=== PATIENT | male | born 1985 | race Two or more races ===

== ENCOUNTER 2019-01-30 16:21 | Emergency (ER) | payer BC ==
[~2019-01-30] VITALS: Ht 185.4 cm; Wt 97.5 kg
[2019-01-30 16:38] VITALS: BP 147/80
--- NOTE | 2019-01-30 16:38 | NUR ---
ED Nurse Note: PT WALKED IN DUE TO LOWER BACK PAIN MORE ON LEFT FLANK AREA AND UNABLE TO URINATE SINCE THIS MORNING. HX OF KIDNEY STONES. AAO X4, AMBULATORY WITH UNLABORED BREATHING. VSS.
--- NOTE | 2019-01-30 16:40 | Emergency Room Report ---
History of Present Illness General Chief Complaint: Male Urogenital Problems Source: Patient, Friend Present Illness HPI Patient presents with left-sided flank pain. It started at 3 AM this morning. He denies vomiting but felt like he was about to. He's had difficulty urinating. Last week he passed a small stone. A CAT scan was done at outpatient facility 2 days ago. He denies fevers or chills. He reports the pain at 7/10 at this time and fairly constant. He has a history of renal stones in the past. The pain is more anterior and radiates somewhat down to the groin area. He has not taken any pain medication today. He has been refraining from drinking fluids because of the pain. No sore throat, chest pain, palpitations, diarrhea, shortness of breath, joint pain, rashes, depression, anxiety, visual changes, headache. Allergies: Coded Allergies: No Known Allergies (Unverified , 01/30/19) Patient History Past Medical History: see triage record Social History: Denies: smoking Social History Narrative with friend Reviewed Nursing Documentation: PMH: Agreed; PSxH: Agreed Nursing Documentation-PMH Past Medical History: No History, Except For Hx Cardiac Problems: No - kidney stone Review of Systems All Other Systems: negative except mentioned in HPI Physical Exam Vital Signs Date Time Temp Pulse Resp B/P (MAP) Pulse Ox O2 Delivery O2 Flow Rate FiO2 01/30/19 16:28 98.1 86 18 150/85 (106) 99 Room Air Sp02 EP Interpretation: reviewed, normal General Appearance: well appearing, no apparent distress, GCS 15 Head: normocephalic, atraumatic Eyes: bilateral eye normal inspection, bilateral eye PERRL, bilateral eye EOMI ENT: moist mucus membranes Neck: supple Respiratory: lungs clear, normal breath sounds Cardiovascular #1: regular rate, rhythm Cardiovascular #2: 2+ radial (R) Gastrointestinal: normal inspection, normal bowel sounds, no mass, non- distended, no guarding, no rebound, tenderness - Minimal left lower quadrant and flank Genitourinary: no CVA tenderness Musculoskeletal: back normal, gait/station normal, normal range of motion Neurologic: alert, oriented x3, grossly normal Psychiatric: mood/affect normal Skin: no rash, other - Episodes of pain where he loses some of his color Medical Decision Making Diagnostic Impression: Primary Impression: Flank pain Additional Impression: Hesitancy of micturition ER Course Patient presents with left flank pain with history of renal stones. Differential renal colic, UTI, obstructing stone, bladder stone amongst others. Evaluation will be with labs and renal ultrasound. The patient will be treated with IV hydration, Toradol, Zofran and morphine. He recently had a CAT scan done. Depending on the ultrasound results and clinical course of his pain another CT scan may need to be performed today. CBC unremarkable. CMP with minimal elevated creatinine. Urinalysis unremarkable. Ultrasound without hydronephrosis. 1.2 cm stone in the left renal calyx. No obstruction. Patient able to urinate here without difficulty. Stone is felt not to be the cause of discomfort. It is possible that he is passing grit from the prior renal stone. Patient is improved. Discussed findings with patient and friend. Discussed treatment plan. Patient stable for outpatient observation and treatment. Laboratory Tests Test 01/30/19 16:45 01/30/19 17:45 White Blood Count 9.3 K/UL (4.8-10.8) Red Blood Count 4.97 M/UL (4.70-6.10) Hemoglobin 15.5 G/DL (14.2-18.0) Hematocrit 45.8 % (42.0-52.0) Mean Corpuscular Volume 92 FL (80-99) Mean Corpuscular Hemoglobin 31.1 PG (27.0-31.0) H Mean Corpuscular Hemoglobin Concent 33.8 G/DL (32.0-36.0) Red Cell Distribution Width 10.1 % (11.6-14.8) L Platelet Count 326 K/UL (150-450) Mean Platelet Volume 5.7 FL (6.5-10.1) L Neutrophils (%) (Auto) 58.7 % (45.0-75.0) Lymphocytes (%) (Auto) 27.4 % (20.0-45.0) Monocytes (%) (Auto) 8.7 % (1.0-10.0) Eosinophils (%) (Auto) 3.7 % (0.0-3.0) H Basophils (%) (Auto) 1.4 % (0.0-2.0) Prothrombin Time 9.8 SEC (9.30-11.50) Prothrombin Time INR 0.9 (0.9-1.1) PTT 27 SEC (23-33) Sodium Level 139 MMOL/L (136-145) Potassium Level 3.9 MMOL/L (3.5-5.1) Chloride Level 103 MMOL/L (98-107) Carbon Dioxide Level 26 MMOL/L (21-32) Anion Gap 10 mmol/L (5-15) Blood Urea Nitrogen 17 mg/dL (7-18) Creatinine 1.4 MG/DL (0.55-1.30) H Estimate Glomerular Filtration Rate 58.0 mL/min (>60) Glucose Level 103 MG/DL (74-106) Calcium Level 9.5 MG/DL (8.5-10.1) Total Bilirubin 0.7 MG/DL (0.2-1.0) Aspartate Amino Transferase (AST) 33 U/L (15-37) Alanine Aminotransferase (ALT) 46 U/L (12-78) Alkaline Phosphatase 72 U/L (46-116) Total Protein 7.8 G/DL (6.4-8.2) Albumin 4.8 G/DL (3.4-5.0) Globulin 3.0 g/dL Albumin/Globulin Ratio 1.6 (1.0-2.7) Lipase 91 U/L (73-393) Urine Color Pale yellow Urine Appearance Clear Urine pH 5 (4.5-8.0) Urine Specific Gipsy 1.015 (1.005-1.035) Urine Protein Negative (NEGATIVE) Urine Glucose (UA) Negative (NEGATIVE) Urine Ketones 2+ (NEGATIVE) H Urine Blood 1+ (NEGATIVE) H Urine Nitrite Negative (NEGATIVE) Urine Bilirubin Negative (NEGATIVE) Urine Urobilinogen Normal MG/DL (0.0-1.0) Urine Leukocyte Esterase 1+ (NEGATIVE) H Urine RBC 0-2 /HPF (0 - 0) H Urine WBC 0-2 /HPF (0 - 0) Urine Squamous Epithelial Cells None /LPF (NONE/OCC) Urine Bacteria None /HPF (NONE) CT/MRI/US Diagnostic Results CT/MRI/US Diagnostic Results : Imaging Test Ordered: Renal ultrasound Impression The size, contour, and echogenicity of both kidneys are within normal limits. There is no hydronephrosis. The IVC and urinary bladder are unremarkable. Right kidney measures 10.3 cm in length. Left kidney measures 12 cm in length. There is a nonobstructive stone in the left kidney. There is no hydronephrosis. IMPRESSION: Nonobstructive stone in the left kidney. Last Vital Signs Date Time Temp Pulse Resp B/P (MAP) Pulse Ox O2 Delivery O2 Flow Rate FiO2 01/30/19 19:34 98.3 89 20 136/78 100 Room Air Status: improved Disposition: HOME, SELF-CARE Condition: Improved Scripts Tramadol Hcl* (ULTRAM*) 50 Mg Tablet 50 MG ORAL Q6H PRN for For Pain, #6 TAB 0 Refills Prov: Srinivas Elise MD 01/30/19 Phenazopyridine Hcl* (PYRIDIUM*) 100 Mg Tablet 100 MG ORAL THREE TIMES A DAY PRN for dysruria, #10 TAB Prov: Srinivas Elise MD 01/30/19 Srinivas Elise MD Jan 30, 2019 16:40
[2019-01-30] MEDS ORDERED: Ketorolac 30mg Inj IV ONE (16:45)
[2019-01-30] MEDS ORDERED: Morphine Sulfate 4mg/ml Inj (IV USE ONLY) IVP ONE (16:45)
[2019-01-30 16:54] LABS: BASOPHILS % (AUTO) 1.4 % (0.0-2.0); EOSINOPHILS % (AUTO) 3.7 % (0.0-3.0); HEMATOCRIT 45.8 % (42.0-52.0); HEMOGLOBIN 15.5 G/DL (14.2-18.0); LYMPHOCYTES % (AUTO) 27.4 % (20.0-45.0); MEAN CORPUSCULAR VOLUME 92 FL (80-99); MONOCYTES % (AUTO) 8.7 % (1.0-10.0); NEUTROPHILS % (AUTO) 58.7 % (45.0-75.0); PLATELET COUNT 326 K/UL (150-450); RED BLOOD COUNT 4.97 M/UL (4.70-6.10); RED CELL DISTRIBUTION WIDTH 10.1 % (11.6-14.8); WHITE BLOOD COUNT 9.3 K/UL (4.8-10.8)
[2019-01-30 17:05] LABS: ANION GAP 10 mmol/L (5-15); BLOOD UREA NITROGEN 17 mg/dL (7-18); CALCIUM 9.5 MG/DL (8.5-10.1); CARBON DIOXIDE 26 MMOL/L (21-32); CHLORIDE 103 MMOL/L (98-107); CREATININE 1.4 MG/DL (0.55-1.30); INR 0.9 (0.9-1.1); POTASSIUM 3.9 MMOL/L (3.5-5.1); SODIUM 139 MMOL/L (136-145)
[2019-01-30 17:10] LABS: ALANINE AMINOTRANSFERASE 46 U/L (12-78); ALBUMIN 4.8 G/DL (3.4-5.0); ALBUMIN/GLOBULIN RATIO 1.6 (1.0-2.7); ALKALINE PHOSPHATASE 72 U/L (46-116); ASPARTATE AMINO TRANSFERASE 33 U/L (15-37); BILIRUBIN,TOTAL 0.7 MG/DL (0.2-1.0)
[2019-01-30 17:56] LABS: APPEARANCE,URINE CLEAR; BILIRUBIN, URINE NEGATIVE (NEGATIVE); COLOR,URINE PALE YELLOW; GLUCOSE, URINE (UA) NEGATIVE (NEGATIVE); KETONES,URINE 2+ (NEGATIVE); LEUKOCYTE ESTERASE ,URINE 1+ (NEGATIVE); NITRITE,URINE NEGATIVE (NEGATIVE); PH,URINE 5 (4.5-8.0); PROTEIN,URINE NEGATIVE (NEGATIVE); UROBILINOGEN,URINE NORMAL MG/DL (0.0-1.0)
--- NOTE | 2019-01-30 18:00 | NUR ---
ED Nurse Note: URINE SPECIMEN SENT.
[2019-01-30] MEDS ORDERED: NKM (18:22)
[2019-01-30 18:44] VITALS: BP 136/78
--- NOTE | 2019-01-30 19:01 | NUR ---
HAND-OFF: Report given to MITCHELL MACIAS.
[2019-01-30] MEDS ORDERED: PHENAZOPYRIDIN100 MG ORAL (19:23)
[2019-01-30] MEDS ORDERED: TRAMADOL HCL50 MG ORAL (19:23)
[2019-01-30 19:34] VITALS: BP 136/78
--- NOTE | 2019-01-30 19:35 | NUR ---
ER DISCHARGE NOTE: Patient is cleared to be discharged per ERMD, pt is aox4, on room air, with stable vital signs. pt was given dc and prescription instructions, pt was able to verbalize understanding, pt id band and iv site removed without complications. pt is able to ambulate with steady gait. pt took all belongings.
--- NOTE | 2019-01-30 20:24 | Diagnostic Imaging Report ---
Indication:Elevated Bun and Creatinine. Flank pain Technique: Grayscale and duplex Doppler imaging of the kidneys performed. Comparison: None Findings: The size, contour, and echogenicity of both kidneys are within normal limits. There is no hydronephrosis. The IVC and urinary bladder are unremarkable. Right kidney measures 10.3 cm in length. Left kidney measures 12 cm in length. There is a nonobstructive stone in the left kidney. There is no hydronephrosis. IMPRESSION: Nonobstructive stone in the left kidney.
[2019-01-30] MEDS ORDERED: Tamsulosin 0.4mg cap ORAL SCH (21:00)
== END 2019-01-30 19:36 | disposition home or self-care (01) ==
LOC: EMR 16:52
DX: R10.9 Unspecified abdominal pain (principal); R39.11 Hesitancy of micturition; N20.0 Calculus of kidney
CPT/HCPCS: 36415; 76770; 80053; 81003; 83690; 85025; 85610; 85730; 96361; 96374; 96375; 99284; J1885; J2270; J2405